=== PATIENT | male | born 1945 | race Caucasian/White ===

== ENCOUNTER 2022-04-06 22:00 | Emergency (ER) | payer MEDICARE, SELFPAY ==
[2022-04-06 22:13] VITALS: BP 164/78; PULSE 59; RESP 18; TEMP 36.4; O2SAT 97; BMI 23.0
--- NOTE | 2022-04-07 12:53 | ED.ALLEREA ---
HPI - Allergic Reaction General Chief complaint: Allergic Reaction Stated complaint: Possible adverse reaction to antibiotic Time Seen by Provider: 04/06/22 23:25 Source: patient and RN notes reviewed Mode of arrival: ambulatory Limitations: no limitations History of Present Illness HPI narrative: 76-year-old man presenting to the emergency department with concern of possible allergic reaction to medication. Two days ago he was apparently diagnosed with a cellulitis in the left lower leg on an urgent care. Was given a prescription for doxycycline. Indicates reading all the instructions and they cause fear. Nafisa is alert to potential problems. When he noticed a lump on the base of my tailbone he was worried he might be having allergic reaction. He is not had any difficulty breathing shortness of breath chest pain nausea abdominal cramping. No swelling in the throat. Does not describe inflammation consistent with a burn from sun exposure perhaps with doxycycline. original rash/cellulitis does look better apparently. Related Data Home Medications Medication Instructions Recorded Confirmed loratadine 10 mg tablet (Claritin) 10 mg PO DAILY 04/06/22 04/06/22 Allergies Allergy/AdvReac Type Severity Reaction Status Date / Time cephalexin [From Keflex] Allergy Mild Nausea Verified 04/06/22 22:19 Review of Systems Status of ROS Reports: 6 or more systems reviewed and unremarkable except as noted in History and below PFSH PFSH Social History Smoking Status: Never smoker Do you use any of these nicotine containing products: None How often do you have a drink containing alcohol: 4 or more times a week How many standard drinks containing alcohol do you have on a typical day: 1 or 2 AUDIT-C Alcohol total score: 4 Non-prescribed substance use: denies use Exam Narrative: Exam Narrative: Very pleasant man. NAD. Breathing easily, lungs appear to be clear Cardiovascular are are are to bradycardic. Moving extremities without difficulty. Well perfused peripherally. Transitions without difficulty Skin is warm and dry. The initial area in question is a patch about 3 inches across fairly well demarcated buttock coalescing erythema in the middle of the medial left lower leg. Centrally there is a little pink papule consistent with some sort of a trauma. Subtly clearing just around this I think. No significant calor or induration. Architecture of the skin is maintained. The lump in question is at the upper left gluteal fold. Orangy- erythema and 2 cm firm swelling without fluctuance. Maybe mildly tender to palpation. There is some lichenification or maybe slightly edematous/pale superficial changes to the skin superiorly here and a half a cm crack in the skin just right of center. Const: Vital Signs, click to edit/add: Vital Signs - 24 hr 04/06/22 22:13 Temperature 97.6 F Pulse Rate [Left P ulse Oximeter] 59 L Respiratory Rate 18 Blood Pressure [ri ght arm] 164/78 H Pulse Oximetry 97 Documenting provider has reviewed patient's vital signs: yes Course Course Hospital Course: Interview and exam as above Vital Signs Vital signs: Initial Vital Signs Temperature 97.6 F 04/06/22 22:13 Temperature Source Temporal Artery Scan 04/06/22 22:13 Pulse Rate 59 L 04/06/22 22:13 Pulse Rhythm 04/06/22 22:13 Respiratory Rate 18 04/06/22 22:13 Blood Pressure 164/78 H 04/06/22 22:13 Blood Pressure Mean 106 04/06/22 22:13 Blood Pressure Position Supine 04/06/22 22:13 Pulse Oximetry 97 04/06/22 22:13 Oxygen Delivery Method 04/06/22 22:13 Vital Signs Temperature 97.6 F 04/06/22 22:13 Pulse Rate 59 L 04/06/22 22:13 Respiratory Rate 18 04/06/22 22:13 Blood Pressure 164/78 H 04/06/22 22:13 Pulse Oximetry 97 04/06/22 22:13 Temperature 97.6 F 04/06/22 22:13 Pulse Rate 59 L 04/06/22 22:13 Respiratory Rate 18 04/06/22 22:13 Blood Pressure 164/78 H 04/06/22 22:13 Pulse Oximetry 97 04/06/22 22:13 MDM - Allergic Reaction MDM Narrative Medical decision making narrative: I do not see evidence of an allergic reaction here. My thought is that perhaps there was some sort of envenomation or insult to the left lower leg which resulted in some hemolysis intradermally. No evidence of cellulitis here at this time. Coincidentally seems there is a pilonidal cyst perhaps or other cyst developing upper gluteal area. No major inflammatory changes or tenderness at this time. Perhaps some edema related to lack of dryness in the upper gluteal area has contributed to some skin breakdown as inoculation site? At this point actually would continue the doxycycline with care taken to sun exposure due to evolving cystic structure in the upper gluteal area. Not actually take doxycycline for the lower leg at this time. Would do Sitz baths or some version of that as well. Watching for worsening in potential infection. Also work to keep this area dry in the future Medical Records Medical records narrative: Not able to locate any Discharge Plan Discharge Clinical Impression: Bruise, Pilonidal cyst Patient Disposition: Home, Self-Care Condition: Stable Instructions: Pilonidal Cyst (ED), Sitz Bath (DC) Additional Instructions: I am concerned you are developing The equivalent of a pilonidal cyst represented by that lump. The inoculation site could be that little crack in the skin adjacent to it but usually it is hair follicle. these can become very inflamed and require drainage of an abscess. Keep taking the doxycycline at this time and do Sitz baths If you can a couple times a day over the next few days. avoid traumatizing the area or putting excessive pressure on it. While taking doxycycline and for a few days after, protect yourself from the sun. As far as Your leg goes, I am using the word bruise for lack of a better term. I wonder if you may have been bitten by something and had a localized inflammatory reaction resulting in some lysis / breakdown of the red cells in the area which would be kind of Similar to a bruise. at this point it does not look like a cellulitis. Keep elevating at rest to allow for mobilization of Residual fluid. Prescriptions: No Action loratadine [Claritin] 10 mg tablet 10 mg PO DAILY 0RF Stand Alone Forms: [facility] Info Instructions
== END 2022-04-07 00:12 | disposition home or self-care (01) ==
LOC: ED 23:50
PROVIDERS: Emergency Provider Family Medicine
DX: R23.3 Spontaneous ecchymoses (principal); L05.91 Pilonidal cyst without abscess
CPT/HCPCS: 99282; 99283